=== PATIENT | male | born 1970 | race Caucasian/White ===

== ENCOUNTER 2022-12-02 09:50 | Emergency (ER) | payer OTHER ==
[~2022-12-02] VITALS: Ht 172.7 cm; Wt 79.4 kg
== END 2022-12-02 14:01 | disposition home or self-care (01) ==
LOC: ER 09:50
DX: T78.49XA Other allergy, initial encounter (principal); Z91.013 Allergy to seafood; J45.909 Unspecified asthma, uncomplicated